=== PATIENT | female | born 1935 | race Caucasian/White ===

== ENCOUNTER → 2020-08-26 17:42 | Outpatient (CLI) | payer MEDICARE ==
[2020-08-26 17:52] LABS: BASOPHILS 0.3 % (0-2); EOSINOPHILS 2.2 % (0-7); HEMATOCRIT 32.6 % (36.0-48.0); HEMOGLOBIN 9.5 g/dL (12-16); IMMATURE GRANULOCYTES 0.2 % (0-5); LYMPHOCYTE ABS# 1.64 10x3/uL (1.18-3.74); LYMPHOCYTES 26.3 % (15-50); MCH 24.9 pg (26.0-34.0); MCHC 29.1 g/dL (31.0-37.0); MCV 85.6 fL (80.0-100.0); MEAN PLATELET VOLUME 9.5 fL (7.4-10.4); MONOCYTES 10.4 % (2-11); NEUTROPHIL ABS# 3.78 10x3/uL (1.56-6.13); NEUTROPHILS 60.6 % (40-80); PLATELET COUNT 491 10x3/uL (130-400); RBC 3.81 10x6/uL (4.00-5.40); WBC 6.2 10x3/uL (4.8-10.8)
[2020-08-26 18:27] LABS: ALBUMIN 2.8 g/dL (3.4-5.0); BILIRUBIN - DIRECT 0.07 mg/dL (0.00-0.30); BILIRUBIN - INDIRECT 0.24 mg/dL (0.00-1.00); BILIRUBIN - TOTAL 0.31 mg/dL (0.2-1.3); CREATININE - SERUM 1.2 mg/dL (0.6-1.3); PROTEIN - SERUM 6.4 g/dL (6.4-8.2)
== END | disposition home or self-care (01) ==
LOC: D.LABREF 17:42
PROVIDERS: ATTEND Internal Medicine
DX: M00.9 Pyogenic arthritis, unspecified (principal)

== ENCOUNTER → 2020-09-03 17:38 | Outpatient (CLI) | payer MEDICARE ==
[2020-09-03 21:40] LABS: BASOPHILS 0.3 % (0-2); EOSINOPHILS 3.2 % (0-7); HEMATOCRIT 32.3 % (36.0-48.0); HEMOGLOBIN 9.4 g/dL (12-16); IMMATURE GRANULOCYTES 0.1 % (0-5); LYMPHOCYTE ABS# 1.53 10x3/uL (1.18-3.74); LYMPHOCYTES 22.6 % (15-50); MCH 25.4 pg (26.0-34.0); MCHC 29.1 g/dL (31.0-37.0); MCV 87.3 fL (80.0-100.0); MONOCYTES 9.9 % (2-11); NEUTROPHIL ABS# 4.32 10x3/uL (1.56-6.13); NEUTROPHILS 63.9 % (40-80); RDW 17.5 % (11.5-14.5); WBC 6.8 10x3/uL (4.8-10.8)
[2020-09-03 21:49] LABS: PLATELET COUNT 367 10x3/uL (130-400)
[2020-09-03 22:22] LABS: ALBUMIN 3.1 g/dL (3.4-5.0); BILIRUBIN - DIRECT 0.12 mg/dL (0.00-0.30); BILIRUBIN - INDIRECT 0.14 mg/dL (0.00-1.00); BILIRUBIN - TOTAL 0.26 mg/dL (0.2-1.3); CREATININE - SERUM 1.5 mg/dL (0.6-1.3); PROTEIN - SERUM 6.8 g/dL (6.4-8.2)
== END | disposition home or self-care (01) ==
LOC: D.LABREF 17:38
PROVIDERS: ATTEND Internal Medicine
DX: T84.51XA Infection and inflammatory reaction due to internal right hip prosthesis, initial encounter (principal)

== ENCOUNTER → 2020-09-06 16:09 | Outpatient (CLI) | payer MEDICARE ==
[2020-09-06 16:38] LABS: CREATININE - SERUM 1.1 mg/dL (0.6-1.3)
== END | disposition home or self-care (01) ==
LOC: D.LABREF 16:09
PROVIDERS: ATTEND Internal Medicine
DX: T84.51XA Infection and inflammatory reaction due to internal right hip prosthesis, initial encounter (principal)

== ENCOUNTER → 2020-09-09 18:39 | Outpatient (CLI) | payer MEDICARE ==
[2020-09-09 20:02] LABS: BASOPHILS 0.4 % (0-2); EOSINOPHILS 4.6 % (0-7); HEMATOCRIT 34.3 % (36.0-48.0); HEMOGLOBIN 10.1 g/dL (12-16); IMMATURE GRANULOCYTES 0.3 % (0-5); LYMPHOCYTES 22.1 % (15-50); MCH 25.3 pg (26.0-34.0); MCHC 29.4 g/dL (31.0-37.0); MONOCYTES 8.8 % (2-11); NEUTROPHIL ABS# 4.33 10x3/uL (1.56-6.13); NEUTROPHILS 63.8 % (40-80); PLATELET COUNT 296 10x3/uL (130-400); RBC 3.99 10x6/uL (4.00-5.40); RDW 17.9 % (11.5-14.5); WBC 6.8 10x3/uL (4.8-10.8)
[2020-09-09 20:21] LABS: ALBUMIN 3.1 g/dL (3.4-5.0); BILIRUBIN - DIRECT 0.05 mg/dL (0.00-0.30); BILIRUBIN - INDIRECT 0.13 mg/dL (0.00-1.00); BILIRUBIN - TOTAL 0.18 mg/dL (0.2-1.3); CREATININE - SERUM 1.1 mg/dL (0.6-1.3); PROTEIN - SERUM 6.7 g/dL (6.4-8.2)
== END | disposition home or self-care (01) ==
LOC: D.LABREF 18:39
PROVIDERS: ATTEND Internal Medicine
DX: T84.51XA Infection and inflammatory reaction due to internal right hip prosthesis, initial encounter (principal)